=== PATIENT | male | born 1985 | race Caucasian/White ===

== ENCOUNTER 2020-10-30 20:16 | Emergency (ER) | payer MEDICAID ==
[2020-10-30 20:43] VITALS: BP 139/84; PULSE 74
--- NOTE | 2020-10-30 21:32 | EDM.PDOC ---
ED HPI GENERAL MEDICAL PROBLEM - General Chief Complaint: Respiratory Problem Stated Complaint: POSS COVID Time Seen by Provider: 10/30/20 20:45 Source of Information: Reports: Patient History Limitations: Reports: No Limitations - History of Present Illness INITIAL COMMENTS - FREE TEXT/NARRATIVE: The patient presents for COVID 19 exposure. He said he had a friend that was here visiting from [place]. His friend left to go home a couple days ago and he got a call today that his friend was COVID 19 positive. He has no symptoms such as cough, congestion, shortness of breath, taste or smell issues or diarrhea. He has no medical problems. 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 Home Meds: Home Meds ARIPiprazole [Abilify] 10 mg PO DAILY 10/30/20 [History] Citalopram Hydrobromide [Celexa] 20 mg PO DAILY 10/30/20 [History] Past Medical History Other Musculoskeletal History: back surgery( 1995) scoliosis Psychiatric History: Reports: Anxiety, Depression Social & Family History - Tobacco Use Tobacco Use Status *Q: Never Tobacco User - Caffeine Use Caffeine Use: Reports: Soda - Recreational Drug Use Recreational Drug Use: No ED ROS GENERAL - Review of Systems Review Of Systems: See Below Constitutional: Reports: No Symptoms HEENT: Reports: No Symptoms Respiratory: Reports: No Symptoms Cardiovascular: Reports: No Symptoms Endocrine: Reports: No Symptoms GI/Abdominal: Reports: No Symptoms : Reports: No Symptoms Musculoskeletal: Reports: No Symptoms ED EXAM, GENERAL - Physical Exam Exam: See Below Exam Limited By: No Limitations General Appearance: Alert, No Apparent Distress Ears: Normal External Exam Nose: Normal Inspection Head: Atraumatic, Normocephalic Neck: Normal Inspection Respiratory/Chest: No Respiratory Distress, Lungs Clear, Normal Breath Sounds Cardiovascular: Regular Rate, Rhythm, No Edema, No Murmur GI/Abdominal: Soft, Non-Tender, No Organomegaly, No Mass Back Exam: Normal Inspection Course - Vital Signs Last Recorded V/S: Last Vital Signs Temp 97.7 F 10/30/20 20:42 Pulse 74 04/15/21 20:42 Resp 20 10/30/20 20:42 BP 139/84 10/30/20 20:42 Pulse Ox 100 10/30/20 20:42 - Orders/Labs/Meds Labs: Laboratory Tests 10/30/20 Range/Units 21:07 SARS-CoV-2 RNA ([facility]) Negative (NEGATIVE) - Re-Assessments/Exams Free Text/Narrative Re-Assessment/Exam: 10/30/20 21:32 I ordered a COVID 19 test. 10/30/20 22:01 COVID 19 is negative. Departure - Departure Time of Disposition: 22:05 Disposition: Home, Self-Care 01 Condition: Good Clinical Impression: Exposure to COVID-19 virus - Discharge Information *PRESCRIPTION DRUG MONITORING PROGRAM REVIEWED*: Not Applicable *COPY OF PRESCRIPTION DRUG MONITORING REPORT IN PATIENT SWAPNA: Not Applicable Referrals: Yumiko Vega [facility] [Primary Care Provider] - 1 Week Forms: ED Department Discharge Additional Instructions: Your COVID 19 test was negative but you should still quarantine for a couple weeks after exposure. Please return if you are worse. Sepsis Event Note (ED) - Evaluation Sepsis Screening Result: No Definite Risk - Focused Exam Vital Signs: Vital Signs Temp Pulse Resp BP Pulse Ox 10/30/20 20:42 97.7 F 74 20 139/84 100
== END 2020-10-30 22:07 | disposition home or self-care (01) ==
LOC: JD.ED 20:16
DX: Z20.822 Contact with and (suspected) exposure to COVID-19 (principal)
CPT/HCPCS: 99282; 99283; U0002